=== PATIENT | female | born 1965 | race Caucasian/White ===

== ENCOUNTER 2021-10-29 07:28 | Day surgery (SDC) | payer OTHER ==
[~2021-10-29] VITALS: Ht 162.6 cm; Wt 61.3 kg
[~2021-10-29 07:28] MED LIST: CYAN1TAB19 PO; PANT40TA77 PO; THIA100T57 PO
[2021-10-29 07:56] VITALS: BP 140/80
[2021-10-29] MEDS ORDERED: PROPOFOL 10 MG/ML (20ML) VIAL. IV ONE (09:07)
[2021-10-29 09:22] VITALS: BP 134/83
== END 2021-10-29 09:37 | disposition home or self-care (01) ==
LOC: ENDOS 07:28
PROVIDERS: ATTEND Internal Medicine Gastroenterology
DX: I85.00 Esophageal varices without bleeding (principal); K29.70 Gastritis, unspecified, without bleeding; K31.89 Other diseases of stomach and duodenum; E11.9 Type 2 diabetes mellitus without complications; M19.90 Unspecified osteoarthritis, unspecified site; Z86.73 Personal history of transient ischemic attack (TIA), and cerebral infarction without residual deficits; Z79.899 Other long term (current) drug therapy; Z98.890 Other specified postprocedural states; Z88.8 Allergy status to other drugs, medicaments and biological substances; Z72.89 Other problems related to lifestyle
CPT/HCPCS: 43244; J2704